=== PATIENT | female | born 1940 | race Caucasian/White ===

== ENCOUNTER 2016-10-25 13:27 | Emergency (ER) | payer MEDICARE, OTHER ==
--- NOTE | 2016-10-25 13:37 | ER Document Report ---
ED General - General Stated Complaint: DIFFICULTY BREATHING Mode of Arrival: Medic Information source: Patient Notes: 76-year-old female presents with complaints of body aches generalized cough shortness of breath URI like symptoms over the past few days. Patient notes multiple family members have had uri symptoms TRAVEL OUTSIDE OF THE [place] IN LAST 30 DAYS: No - HPI Onset: Last week Onset/Duration: Persistent Quality of pain: Achy Severity: Mild Pain Level: 1 Associated symptoms: Weakness Exacerbated by: Denies Relieved by: Denies Similar symptoms previously: No Recently seen / treated by doctor: No - Related Data Allergies/Adverse Reactions: acetaminophen [From Triaminic] Allergy (Severe, Verified 03/28/16 10:53) anaphalactic chlorpheniramine [From Triaminic] Allergy (Severe, Verified 03/28/16 10:53) anaphalactic dextromethorphan HBr [From Triaminic] Allergy (Severe, Verified 03/28/16 10:53) anaphalactic diphenhydramine HCl [From Benadryl] Allergy (Severe, Verified 03/28/16 10:53) meperidine [Meperidine] Allergy (Severe, Verified 04/12/16 13:51) Anaphylaxis Penicillins Allergy (Severe, Verified 03/28/16 10:53) phenylephrine HCl [From Triaminic] Allergy (Severe, Verified 03/28/16 10:53) anaphalactic phenylpropanolamine HCl [From Triaminic] Allergy (Severe, Verified 03/28/16 10: 53) anaphalactic Sulfa (Sulfonamide Antibiotics) Allergy (Severe, Verified 04/12/16 13:51) Anaphylaxis xylometazoline HCl [From Triaminic] Allergy (Severe, Verified 03/28/16 10:53) anaphalactic terfenadine [Terfenadine] Allergy (Intermediate, Verified 04/12/16 13:51) thiopental [Thiopental] Allergy (Intermediate, Verified 04/12/16 13:51) codeine [Codeine] Adverse Reaction (Severe, Verified 04/12/16 13:51) Anaphylaxis Past Medical History - Social History Smoking Status: Never Smoker Cigarette use (# per day): No Chew tobacco use (# tins/day): No Smoking Education Provided: No Family History: Reviewed & Not Pertinent - Past Medical History Cardiac Medical History: Reports: Hx Atrial Fibrillation, Hx Coronary Artery Disease - cath x 13 in 5 years, Hx DVT, Hx Heart Attack - 1993 Denies: Hx Hypertension Pulmonary Medical History: Reports: Hx COPD, Hx Pneumonia Denies: Hx Asthma Neurological Medical History: Denies: Hx Cerebrovascular Accident, Hx Seizures Endocrine Medical History: Reports: Hx Hypothyroidism GI Medical History: Reports: Hx Gastroesophageal Reflux Disease. Denies: Hx Hepatitis, Hx Hiatal Hernia, Hx Ulcer Musculoskeltal Medical History: Reports Hx Arthritis Psychiatric Medical History: Reports: Hx Anxiety, Hx Bipolar Disorder, Hx Depression Infectious Medical History: Denies: Hx Hepatitis Past Surgical History: Reports: Hx Bowel Surgery, Hx Cardiac Catheterization, Hx Section, Hx Coronary Stent, Hx Hysterectomy, Hx Thyroid Surgery. Denies: Hx Mastectomy, Hx Open Heart Surgery, Hx Pacemaker - Immunizations Hx Diphtheria, Pertussis, Tetanus Vaccination: Yes Review of Systems - Review of Systems Notes: REVIEW OF SYSTEMS: CONSTITUTIONAL : Admits recent illness EENT: Denies eye, ear, throat, or mouth pain or symptoms. Denies nasal or sinus congestion or discharge. Denies throat, tongue, or mouth swelling or difficulty swallowing. CARDIOVASCULAR: Denies chest pain. Denies palpitations or racing or irregular heart beat. Denies ankle edema. RESPIRATORY: Denies cough, cold, or chest congestion. Denies shortness of breath, difficulty breathing, or wheezing. GASTROINTESTINAL: Denies abdominal pain or distention. Denies nausea, vomiting , or diarrhea. Denies blood in vomitus, stools, or per rectum. Denies black, tarry stools. Denies constipation. GENITOURINARY: Denies difficulty urinating, painful urination, burning, frequency, blood in urine, or discharge. FEMALE GENITOURINARY: Denies vaginal bleeding, heavy or abnormal periods, irregular periods. Denies vaginal discharge or odor. MUSCULOSKELETAL: Admits to body aches SKIN: Denies rash, lesions or sores. HEMATOLOGIC : Denies easy bruising or bleeding. LYMPHATIC: Denies swollen, enlarged glands. NEUROLOGICAL: Denies confusion or altered mental status. Denies passing out or loss of consciousness. Denies dizziness or lightheadedness. Denies headache. Denies weakness or paralysis or loss of use of either side. Denies problems with gait or speech. Denies sensory loss, numbness, or tingling. Denies seizures. PSYCHIATRIC: Denies anxiety or stress. Denies depression, suicidal ideation, or homicidal ideation. ALL OTHER SYSTEMS REVIEWED AND NEGATIVE. Dictation was performed using [employer] voice recognition software PHYSICAL EXAMINATION: GENERAL: Well-appearing, well-nourished and in no acute distress. HEAD: Atraumatic, normocephalic. EYES: Pupils equal round and reactive to light, extraocular movements intact, conjunctiva are normal. ENT: Nares patent, oropharynx clear without exudates. Moist mucous membranes. NECK: Normal range of motion, supple without lymphadenopathy LUNGS: Breath sounds clear to auscultation bilaterally and equal. No wheezes rales or rhonchi. HEART: Regular rate and rhythm without murmurs ABDOMEN: Soft, nontender, nondistended abdomen. No guarding, no rebound. No masses appreciated. Female : deferred Musculoskeletal: Normal range of motion, no pitting or edema. No cyanosis. NEUROLOGICAL: Cranial nerves grossly intact. Normal speech, normal gait. Normal sensory, motor exams PSYCH: Normal mood, normal affect. SKIN: Warm, Dry, normal turgor, no rashes or lesions noted. Physical Exam - Vital signs Vitals: Temp BP Pulse Ox 100.3 F 139/59 H 81 L 10/25/16 13:30 10/25/16 13:30 10/25/16 13:30 Course - Re-evaluation Re-evalutation: 10/25/16 14:51 Ultrasound-guided IV family placed in the left antecubital 10/25/16 16:[address] Recinos he defers on admission states patient could follow up in his office, states the V. tach is normal for her 10/25/16 16:10 It is noted the family states they do not wish to be called until patient is ready to be discharged 10/25/16 16:27 Patient has probable viral syndrome given fever bodyaches nonproductive cough and multiple family members having similar complaints. Patient denies any other specific concerns, I believe the patient also has social issues stating that she does not wish to go home she can deal with her family. I will put in for a social service consult with discharge planning Otherwise I believe patient stable for discharge, patient has no urinary complaints After performing a Medical Screening Examination, I estimate there is LOW risk for ACUTE CORONARY SYNDROME, RESPIRATORY FAILURE, SEPSIS OR MENINGITIS, thus I consider the discharge disposition reasonable. The patient and I have discussed the diagnosis and risks, and we agree with discharging home with close follow- up. We also discussed returning to the Emergency Department immediately if new or worsening symptoms occur. We have discussed the symptoms which are most concerning (e.g., changing or worsening pain, trouble swallowing or breathing, neck stiffness, fever) that necessitate immediate return. 10/25/16 16:28 10/25/16 16:29 - Vital Signs Vital signs: Temp Pulse Resp BP Pulse Ox 100.3 F 23 H 134/91 H 97 10/25/16 13:30 10/25/16 16:01 10/25/16 16:01 10/25/16 16:01 - Laboratory Result Diagrams: 10/25/16 14:44 10/25/16 14:44 Laboratory results interpreted by me: 10/25/16 10/25/16 10/25/16 14:44 14:44 14:44 Hgb 11.3 L Hct 33.0 L RDW 14.5 H Seg Neutrophils % 79.2 H Lymphocytes % 10.0 L Creatinine 1.26 H Est GFR ( Amer) 50 L Est GFR (Non-Af Amer) 41 L Glucose 111 H Calcium 8.3 L Magnesium AST 50 H NT-Pro-B Natriuret Pep 3620 H 10/25/16 14:44 Hgb Hct RDW Seg Neutrophils % Lymphocytes % Creatinine Est GFR ( Amer) Est GFR (Non-Af Amer) Glucose Calcium Magnesium 1.5 L AST NT-Pro-B Natriuret Pep - Diagnostic Test Radiology reviewed: Image reviewed, Reports reviewed Discharge - Discharge Clinical Impression: Hypomagnesemia, Viral syndrome A-fib Qualifiers: Atrial fibrillation type: paroxysmal Qualified Code(s): I48.0 - Paroxysmal atrial fibrillation Condition: Stable Disposition: HOME, SELF-CARE Instructions: Fever ([facility]) Additional Instructions: Please call if family doctor for an appointment as soon as possible Return immediately if there are any other concerns Referrals: BRIGIDO RECINOS MD [Primary Care Provider] - Follow up tomorrow
[2016-10-25 15:00] LABS: ABSOLUTE LYMPHOCYTES (AUTO) 0.7 10^3/uL (0.5-4.7); ABSOLUTE MONOCYTES (AUTO) 0.7 10^3/uL (0.1-1.4); ABSOLUTE NEUT (AUTO) 5.4 10^3/uL (1.7-8.2); BASOPHILS % (AUTO) 0.4 % (0-2); HEMOGLOBIN 11.3 g/dL (12.0-15.5); HGB HCT DIFFERENCE 0.9; MEAN CORPUSCULAR HGB CONC 34.4 g/dL (32.0-36.0); MEAN CORPUSCULAR VOLUME 87 fl (80-97); MONOCYTES % (AUTO) 10.4 % (3-13); RED BLOOD COUNT 3.78 10^6/uL (3.72-5.28); RED CELL DISTRIBUTION WIDTH 14.5 % (11.5-14.0); SEGMENTED NEUTROPHILS % (AUTO) 79.2 % (42-78); WHITE BLOOD COUNT 6.8 10^3/uL (4.0-10.5)
[2016-10-25 15:12] LABS: ALANINE AMINOTRANSFERASE 30 U/L (9-52); ALBUMIN 3.5 g/dL (3.5-5.0); ALKALINE PHOSPHATASE 81 U/L (38-126); ANION GAP 11 (5-19); ASPARTATE AMINO TRANSFERASE 50 U/L (14-36); BILIRUBIN,TOTAL 0.4 mg/dL (0.2-1.3); BLOOD UREA NITROGEN 19 mg/dL (7-20); CALCIUM 8.3 mg/dL (8.4-10.2); CARBON DIOXIDE 27 mmol/L (22-30); CHLORIDE 101 mmol/L (98-107); CREATINE KINASE 50 U/L (30-135); CREATININE RESULT 1.26 mg/dL (0.52-1.25); GLUCOSE 111 mg/dL (75-110); POTASSIUM 3.6 mmol/L (3.6-5.0); SODIUM 138.6 mmol/L (137-145); TOTAL PROTEIN 6.4 g/dL (6.3-8.2)
[2016-10-25 15:22] LABS: CREATINE KINASE MB 0.27 ng/mL (<4.55)
[2016-10-25 15:25] LABS: TROPONIN I 0.038 ng/mL
[2016-10-25] MEDS ORDERED: MAGNESIUM OXIDE 400 MG TABLET PO ONE (16:11)
[2016-10-25] MEDS ORDERED: ACETAMINOPHEN 325 MG TABLET PO ONE (16:26)
[2016-10-25] MEDS ORDERED: IBUPROFEN 600 MG TABLET PO ONE (16:27)
[2016-10-25 16:41] LABS: APPEARANCE,URINE SLIGHTLY-CLOUDY; BILIRUBIN,URINE NEGATIVE (NEGATIVE); GLUCOSE, URINE NEGATIVE (NEGATIVE); KETONES,URINE NEGATIVE (NEGATIVE); LEUKOCYTE ESTERASE,URINE SMALL (NEGATIVE); NITRITE,URINE NEGATIVE (NEGATIVE); PROTEIN,URINE NEGATIVE (NEGATIVE); URINE SPECIFIC GRAVITY 1.013; UROBILINOGEN,URINE NEGATIVE mg/dL (<2.0)
[2016-10-25 17:12] VITALS: BP 103/80
--- NOTE | 2016-10-25 19:18 | EKG REPORT ---
SEVERITY:- ABNORMAL ECG - ATRIAL FIBRILLATION LEFT AXIS DEVIATION : Confirmed by: Davy Lebron MD 25-Oct-2016 19:17:08
== END 2016-10-25 17:22 | disposition home or self-care (01) ==
LOC: ER 13:27
DX: I48.0 Paroxysmal atrial fibrillation (principal); E83.42 Hypomagnesemia; B34.9 Viral infection, unspecified; R53.1 Weakness; R52 Pain, unspecified; R05 Cough; R50.9 Fever, unspecified; R06.02 Shortness of breath; I25.10 Atherosclerotic heart disease of native coronary artery without angina pectoris; I25.2 Old myocardial infarction; Z88.0 Allergy status to penicillin; Z87.892 Personal history of anaphylaxis; Z88.2 Allergy status to sulfonamides; Z88.8 Allergy status to other drugs, medicaments and biological substances; Z86.718 Personal history of other venous thrombosis and embolism; Z98.61 Coronary angioplasty status
CPT/HCPCS: 93005; 99285; 36415; 82553; 82550; 83735; 84443; 85025; 80053; 81001; 84484; 87804; 83880; 71010; 93010; A9270 ×2

== ENCOUNTER 2017-04-18 09:43 | Emergency (ER) | payer MEDICARE, OTHER ==
[2017-04-18 10:20] LABS: ABSOLUTE BASOPHILS # (AUTO) 0.1 10^3/uL (0.0-0.2); ABSOLUTE EOSINOPHILS # (AUTO) 0.3 10^3/uL (0.0-0.6); ABSOLUTE LYMPHOCYTES (AUTO) 4.8 10^3/uL (0.5-4.7); ABSOLUTE MONOCYTES (AUTO) 0.6 10^3/uL (0.1-1.4); ABSOLUTE NEUT (AUTO) 5.3 10^3/uL (1.7-8.2); BASOPHILS % (AUTO) 0.7 % (0-2); EOSINOPHILS % (AUTO) 2.5 % (0-6); HEMATOCRIT 35.5 % (36.0-47.0); HEMOGLOBIN 11.8 g/dL (12.0-15.5); HGB HCT DIFFERENCE -0.1; LYMPHOCYTES % (AUTO) 43.2 % (13-45); MEAN CORPUSCULAR HEMOGLOBIN 30.8 pg (27.0-33.4); MEAN CORPUSCULAR HGB CONC 33.4 g/dL (32.0-36.0); MEAN CORPUSCULAR VOLUME 92 fl (80-97); MONOCYTES % (AUTO) 5.7 % (3-13); RED BLOOD COUNT 3.84 10^6/uL (3.72-5.28); RED CELL DISTRIBUTION WIDTH 14.1 % (11.5-14.0); SEGMENTED NEUTROPHILS % (AUTO) 47.9 % (42-78)
--- NOTE | 2017-04-18 10:34 | RADIOLOGY REPORT (SQ) ---
EXAM DESCRIPTION: CHEST SINGLE VIEW COMPLETED DATE/TIME: 04/18/2017 10:22 am REASON FOR STUDY: CP COMPARISON: CT chest 06/26/2016, 12/24/2010 Chest films 03/16/2011, 06/28/2015, 10/25/2016 EXAM PARAMETERS: NUMBER OF VIEWS: One view. TECHNIQUE: Single frontal radiographic view of the chest acquired. RADIATION DOSE: NA LIMITATIONS: None. FINDINGS: LUNGS AND PLEURA: Lungs are hyperinflated and hyperlucent from obstructive disease. Mild chronic appearing increased interstitial markings at the bases, stable. No acute infiltrates. No pleural effusion. No pneumothorax. MEDIASTINUM AND HILAR STRUCTURES: No masses. Contour normal. HEART AND VASCULAR STRUCTURES: Heart normal in size. Normal vasculature. BONES: Stable convex rightward thoracic curvature HARDWARE: None in the chest. OTHER: No other significant finding. IMPRESSION: Obstructive lung disease. Mild pulmonary fibrosis at the bases. No acute infiltrates. TECHNICAL DOCUMENTATION: JOB ID: [id number]
[2017-04-18 10:40] LABS: ALANINE AMINOTRANSFERASE 22 U/L (9-52); ALBUMIN 3.8 g/dL (3.5-5.0); ALKALINE PHOSPHATASE 78 U/L (38-126); ANION GAP 12 (5-19); ASPARTATE AMINO TRANSFERASE 28 U/L (14-36); BILIRUBIN,DIRECT 0.3 mg/dL (0.0-0.4); BILIRUBIN,TOTAL 0.6 mg/dL (0.2-1.3); BLOOD UREA NITROGEN 14 mg/dL (7-20); CALCIUM 8.7 mg/dL (8.4-10.2); CARBON DIOXIDE 22 mmol/L (22-30); CHLORIDE 112 mmol/L (98-107); CREATINE KINASE 50 U/L (30-135); CREATININE RESULT 0.98 mg/dL (0.52-1.25); GLUCOSE 109 mg/dL (75-110); LIPASE 98.2 U/L (23-300); MAGNESIUM 1.7 mg/dL (1.6-2.3); POTASSIUM 3.6 mmol/L (3.6-5.0); SODIUM 146.3 mmol/L (137-145); TOTAL PROTEIN 7.2 g/dL (6.3-8.2)
[2017-04-18 10:51] LABS: CREATINE KINASE MB 0.92 ng/mL (<4.55); TROPONIN I 0.013 ng/mL
--- NOTE | 2017-04-18 13:03 | EKG REPORT ---
SEVERITY:- BORDERLINE ECG - SINUS RHYTHM LEFT AXIS DEVIATION BORDERLINE R WAVE PROGRESSION, ANTERIOR LEADS BORDERLINE T ABNORMALITIES, INFERIOR LEADS : Confirmed by: Davy Lebron MD 18-Apr-2017 13:03:30
[2017-04-18] MEDS ORDERED: LIDOCAINE 2% VISCOUS SOLN 20 ML UDCUP PO ONE (13:09)
[2017-04-18] MEDS ORDERED: MAG HYDROX/AL HYDROX/SIMETH SUSP 30 ML UDCUP PO ONE (13:09)
[2017-04-18] MEDS ORDERED: METOCLOPRAMIDE HCL ORAL SOLN 10 MG/10 ML UDCUP PO ONE (13:09)
--- NOTE | 2017-04-18 15:23 | ER Document Report ---
ED General - General Chief Complaint: Chest Pain Stated Complaint: CHEST PAIN Time Seen by Provider: 04/18/17 09:47 TRAVEL OUTSIDE OF THE [place] IN LAST 30 DAYS: No - HPI Patient complains to provider of: Chest pain Notes: Patient coming in for evaluation chest pain. Patient was sleeping upon my evaluation easily arousable upon arousing patient states she continues to have chest pain. Patient states ongoing for the last 2 days left-sided radiating to her neck into her arm. Patient states that when the chest pain in the past. Patient states she is followed by cardiology. Denies any stent placement or bypass surgery. Patient states compliance with her medications. Denies any recent trauma describes pain sharp - Related Data Allergies/Adverse Reactions: acetaminophen [From Triaminic] Allergy (Severe, Verified 03/28/16 10:53) anaphalactic chlorpheniramine [From Triaminic] Allergy (Severe, Verified 03/28/16 10:53) anaphalactic dextromethorphan HBr [From Triaminic] Allergy (Severe, Verified 03/28/16 10:53) anaphalactic diphenhydramine HCl [From Benadryl] Allergy (Severe, Verified 03/28/16 10:53) meperidine [Meperidine] Allergy (Severe, Verified 04/12/16 13:51) Anaphylaxis Penicillins Allergy (Severe, Verified 03/28/16 10:53) phenylephrine HCl [From Triaminic] Allergy (Severe, Verified 03/28/16 10:53) anaphalactic phenylpropanolamine HCl [From Triaminic] Allergy (Severe, Verified 03/28/16 10: 53) anaphalactic Sulfa (Sulfonamide Antibiotics) Allergy (Severe, Verified 04/12/16 13:51) Anaphylaxis xylometazoline HCl [From Triaminic] Allergy (Severe, Verified 03/28/16 10:53) anaphalactic terfenadine [Terfenadine] Allergy (Intermediate, Verified 04/12/16 13:51) thiopental [Thiopental] Allergy (Intermediate, Verified 04/12/16 13:51) codeine [Codeine] Adverse Reaction (Severe, Verified 04/12/16 13:51) Anaphylaxis Past Medical History - Social History Smoking Status: Never Smoker Chew tobacco use (# tins/day): No Frequency of alcohol use: None Drug Abuse: None Family History: Reviewed & Not Pertinent - Past Medical History Cardiac Medical History: Reports: Hx Atrial Fibrillation, Hx Coronary Artery Disease - cath x 13 in 5 years, Hx DVT, Hx Heart Attack - 1993 Denies: Hx Hypertension Pulmonary Medical History: Reports: Hx COPD, Hx Pneumonia Denies: Hx Asthma Neurological Medical History: Denies: Hx Cerebrovascular Accident, Hx Seizures Endocrine Medical History: Reports: Hx Hypothyroidism GI Medical History: Reports: Hx Gastroesophageal Reflux Disease. Denies: Hx Hepatitis, Hx Hiatal Hernia, Hx Ulcer Musculoskeltal Medical History: Reports Hx Arthritis Psychiatric Medical History: Reports: Hx Anxiety, Hx Bipolar Disorder, Hx Depression Infectious Medical History: Denies: Hx Hepatitis Past Surgical History: Reports: Hx Bowel Surgery, Hx Cardiac Catheterization, Hx Section, Hx Coronary Stent, Hx Hysterectomy, Hx Thyroid Surgery. Denies: Hx Mastectomy, Hx Open Heart Surgery, Hx Pacemaker - Immunizations Hx Diphtheria, Pertussis, Tetanus Vaccination: Yes Review of Systems - Review of Systems Constitutional: No symptoms reported EENT: No symptoms reported Cardiovascular: Chest pain Respiratory: No symptoms reported Gastrointestinal: No symptoms reported Genitourinary: No symptoms reported Female Genitourinary: No symptoms reported Musculoskeletal: No symptoms reported Skin: No symptoms reported Hematologic/Lymphatic: No symptoms reported Neurological/Psychological: No symptoms reported -: Yes All other systems reviewed and negative Physical Exam - Vital signs Vitals: Pulse Ox 96 04/18/17 09:44 Interpretation: Normal - General General appearance: Appears well, Alert - HEENT Head: Normocephalic, Atraumatic Eyes: Normal Pupils: PERRL - Respiratory Respiratory status: No respiratory distress Chest status: Tender - Reproducible chest pain on anterior palpation of the chest the left side patient has a fentanyl patch also placed on the left side. Breath sounds: Normal Chest palpation: Normal - Cardiovascular Rhythm: Regular Heart sounds: Normal auscultation Murmur: No - Abdominal Inspection: Normal Distension: No distension Bowel sounds: Normal Tenderness: Nontender Organomegaly: No organomegaly - Back Back: Normal, Nontender - Extremities General upper extremity: Normal inspection, Nontender, Normal color, Normal ROM , Normal temperature General lower extremity: Normal inspection, Nontender, Normal color, Normal ROM , Normal temperature, Normal weight bearing. No: Carl's sign - Neurological Neuro grossly intact: Yes Cognition: Normal Orientation: AAOx4 Shipman Coma Scale Eye Opening: Spontaneous Shipman Coma Scale Verbal: Oriented Juanita Coma Scale Motor: Obeys Commands Juanita Coma Scale Total: 15 Speech: Normal Motor strength normal: LUE, RUE, LLE, RLE Sensory: Normal - Psychological Associated symptoms: Normal affect, Normal mood - Skin Skin Temperature: Warm Skin Moisture: Dry Skin Color: Normal Course - Re-evaluation Re-evalutation: 04/18/17 15:21 Discussion with patient's PCP Varun Recinos no EKG changes or laboratory abnormalities at this time recommend a repeat troponin if negative patient can be discharged home Dr. Recinos states that the patient very well states [facility] cardi[facility] recommendations that the patient be treated medically. - Vital Signs Vital signs: Temp Pulse Resp BP Pulse Ox 97.8 F 15 160/52 H 97 04/18/17 10:00 04/18/17 13:01 04/18/17 13:00 04/18/17 13:01 - Laboratory Result Diagrams: 04/18/17 10:09 04/18/17 10:09 Laboratory results interpreted by me: 04/18/17 04/18/17 10:09 10:09 WBC 11.0 H Hgb 11.8 L Hct 35.5 L RDW 14.1 H Absolute Lymphocytes 4.8 H Sodium 146.3 H Chloride 112 H Est GFR (Non-Af Amer) 55 L Discharge - Discharge Clinical Impression: Chest wall pain, Chest pain of unknown etiology Condition: Good Disposition: HOME, SELF-CARE Instructions: Chest Pain of Unclear Cause ([facility]), Chest Wall Pain ([facility]) Additional Instructions: Your laboratory studies do not show any signs of heart damage. I discussed her case with your primary care doctor Dr. Varun Recinos recommends at this time to be discharged you and have a follow-up in his office on Friday. Return to the ER symptoms worsen. Referrals: BRIGIDO RECINOS MD [Primary Care Provider] - Follow up as needed
[2017-04-18 15:37] VITALS: BP 111/89
== END 2017-04-18 15:37 | disposition home or self-care (01) ==
LOC: ER 09:43
DX: R07.89 Other chest pain (principal); I25.10 Atherosclerotic heart disease of native coronary artery without angina pectoris; I25.2 Old myocardial infarction; J44.9 Chronic obstructive pulmonary disease, unspecified; Z79.899 Other long term (current) drug therapy; Z88.0 Allergy status to penicillin; Z87.892 Personal history of anaphylaxis; Z88.8 Allergy status to other drugs, medicaments and biological substances; Z88.6 Allergy status to analgesic agent; Z88.2 Allergy status to sulfonamides; Z86.718 Personal history of other venous thrombosis and embolism; Z87.01 Personal history of pneumonia (recurrent)
CPT/HCPCS: 93005; 99285; 36415; 82553; 82550; 83690; 83735; 85025; 80053; 84484; 85379; 71010; 93010; J3490; A9270